=== PATIENT | male | born 1945 ===

== ENCOUNTER 2018-03-04 08:22 | Outpatient (CLI) | payer OTHER ==
[~2018-03-04 08:22] MED LIST: CALTRATE-600/VI1 TA1 PO; COREG CR20 MG PO; DIGOXIN125 MCG PO; FOSAMAX70 MG PO; GABAPENTIN300 MG PO; GABAPENTIN600 MG PO; GLUMETZA1000 MG PO; HYZAAR 100-121 UDTAB PO; INSULIN SYR1 DIS.S10 MC; LANTUS100 U/ML SQ; LOPID PO; MAXIMUM DAILY1 EACH PO; NABUMETONE500 MG PO; NEURIN SL; PERCOCET 5/3251 TAB PO; PLAVIX75 MG PO; SYNTHROID50 MCG PO; ULTRACET PO; ZOCOR40 MG PO; ZOLOFT50 MG PO; ZOVIRAX5 GM TP
== END 2018-03-04 17:02 | disposition home or self-care (01) ==
LOC: NUCLEAR 08:22
DX: I50.89 Other heart failure (principal); I11.9 Hypertensive heart disease without heart failure

== ENCOUNTER 2018-03-04 10:28 | Inpatient (IN) | payer OTHER ==
[~2018-03-04] VITALS: Ht 170.2 cm; Wt 86.2 kg
== END 2018-03-17 11:50 | disposition designated cancer center or children's hospital (05) | DRG 291 ==
LOC: ER 10:28 → MEDJ 17:26 → ICU-2 17:26 → SEC-K 03-08 13:23 → MEDI 03-08 14:30 → MEDJ 03-08 14:30
PROC: 4A033R1 Measurement of Arterial Saturation, Peripheral, Percutaneous Approach (ICD-10-PCS; principal; 2018-03-04)
PROC: B246ZZZ Ultrasonography of Right and Left Heart (ICD-10-PCS; 2018-03-04)
PROC: 3E0F7GC Introduction of Other Therapeutic Substance into Respiratory Tract, Via Natural or Artificial Opening (ICD-10-PCS; 2018-03-04)
PROC: BW24ZZZ Computerized Tomography (CT Scan) of Chest and Abdomen (ICD-10-PCS; 2018-03-05)
PROC: BW28ZZZ Computerized Tomography (CT Scan) of Head (ICD-10-PCS; 2018-03-05)
PROC: 5A09457 Assistance with Respiratory Ventilation, 24-96 Consecutive Hours, Continuous Positive Airway Pressure (ICD-10-PCS; 2018-03-06)
PROC: BW40ZZZ Ultrasonography of Abdomen (ICD-10-PCS; 2018-03-07)
PROC: 4A12X4Z Monitoring of Cardiac Electrical Activity, External Approach (ICD-10-PCS; 2018-03-08)
PROC: 8E0ZXY6 Isolation (ICD-10-PCS; 2018-03-08)
DX: I13.0 Hypertensive heart and chronic kidney disease with heart failure and stage 1 through stage 4 chronic kidney disease, or unspecified chronic kidney disease (principal); J96.02 Acute respiratory failure with hypercapnia; I50.43 Acute on chronic combined systolic (congestive) and diastolic (congestive) heart failure; J15.0 Pneumonia due to Klebsiella pneumoniae; E87.2 Acidosis; J21.8 Acute bronchiolitis due to other specified organisms; N17.8 Other acute kidney failure; E11.22 Type 2 diabetes mellitus with diabetic chronic kidney disease; E11.65 Type 2 diabetes mellitus with hyperglycemia; N18.2 Chronic kidney disease, stage 2 (mild); I34.0 Nonrheumatic mitral (valve) insufficiency; I27.29 Other secondary pulmonary hypertension; E03.8 Other specified hypothyroidism; Z86.73 Personal history of transient ischemic attack (TIA), and cerebral infarction without residual deficits; I25.10 Atherosclerotic heart disease of native coronary artery without angina pectoris; J20.8 Acute bronchitis due to other specified organisms; I48.0 Paroxysmal atrial fibrillation

== ENCOUNTER 2018-04-14 14:50 | Emergency (ER) | payer OTHER ==
[~2018-04-14] VITALS: Ht 170.2 cm; Wt 63.5 kg
[2018-04-14] MEDS ORDERED: ELIQUIS2.5 MG (15:09)
[2018-04-14] MEDS ORDERED: FAMOTIDINE20 MG (15:09)
[2018-04-14] MEDS ORDERED: BRILINTA60 MG (15:10)
== END 2018-04-14 22:00 | disposition home or self-care (01) ==
LOC: ER 14:50 → CPU-OBS 14:51 → ER 14:51
DX: S20.211A Contusion of right front wall of thorax, initial encounter (principal); S00.11XA Contusion of right eyelid and periocular area, initial encounter; S80.212A Abrasion, left knee, initial encounter; S80.211A Abrasion, right knee, initial encounter; S39.83XA Other specified injuries of pelvis, initial encounter; M54.5 Low back pain; R07.89 Other chest pain; W18.09XA Striking against other object with subsequent fall, initial encounter; Y93.89 Activity, other specified; Y92.018 Other place in single-family (private) house as the place of occurrence of the external cause; Y99.8 Other external cause status